=== PATIENT | female | born 1995 | race African-American/Black ===

== ENCOUNTER 2017-03-07 04:01 | Emergency (ER) | payer OTHER ==
--- NOTE | ~2017-03-07 | CR126 ---
[facility]. [facility] A Service of [facility] & [facility] RADIOLOGY TEXT RESULTS PATIENT: JACEK HUGGINS LOCATION: SED : 95 UNIT #: [id number] AGE: [address]: Jeb Franklin MD SEX: F ORDER DR: [id number] [address] [address] [id number] E MR#: [id number] #: [id number] NAME: JACEK HUGGINS : 1995 SEX: F STUDY DATE/TIME: 03/07/2017 4:31 UNIT: SED ROOM: STUDY DESCRIPTION: CR Foot Complete Min 3 View Lt Attending Physician: Jeb Franklin M.D. Ordering Physician: Jeb Franklin M.D. Primary Care Physician: No Primary Care Physician MEDICAL IMAGING REPORT This report is preliminary unless electronic signature is present. EXAM Left foot series, 03/07/2017. HISTORY 21-year-old female in the ED complaining of great toe pain and swelling after injury. Metal chair fell on foot last evening. TECHNIQUE Three-view left foot series. FINDINGS No fracture, dislocation, or other acute osseous abnormality. Soft tissue swelling involving the great toe. IMPRESSION No acute osseous abnormality. Great toe soft tissue swelling. Dictated by... Brennan Gómez M.D. THIS IS AN ELECTRONICALLY VERIFIED REPORT Brennan Gómez M.D. at 03/07/2017 9:56 PM RAYMONDW/bruce TD: 03/07/2017 12:28 JOB #: [id number] MEDICAL IMAGING REPORT Page 1 of 1
[~2017-03-07 04:01] MED LIST: KEFLEX250 M2 PO; NAPROSYN-EC500 M1 PO
[2017-03-07] MEDS ORDERED: NO MEDICATIONS (04:09)
== END 2017-03-07 05:15 | disposition home or self-care (01) ==
LOC: SED 04:01
DX: S90.112A Contusion of left great toe without damage to nail, initial encounter (principal); W22.8XXA Striking against or struck by other objects, initial encounter; Y92.830 Public park as the place of occurrence of the external cause
CPT/HCPCS: 73630; 99283

== ENCOUNTER 2017-05-24 09:43 | Emergency (ER) | payer OTHER ==
[~2017-05-24 09:43] MED LIST changes: +NO MEDICATIONS
[2017-05-24 10:13] LABS: URINE APPEARANCE CLEAR; URINE BILIRUBIN NEG (NEG); URINE BLOOD NEG (NEG); URINE COLOR YELLOW; URINE GLUCOSE NEG (NORM); URINE KETONE NEG (NEG); URINE LEUKOCYTE ESTERASE NEG (NEG); URINE NITRATE NEG (NEG); URINE PH 7.5 (5-8); URINE PROTEIN NEG (NEG); URINE SOURCE CLEAN CATCH; URINE UROBILINOGEN 0.2 MG/DL (NORM)
[2017-05-24 10:24] LABS: MICRO INDICATED? NO
[2017-05-24 10:37] LABS: BASOPHIL% 0.8 % (0-2.5); EOSINOPHIL# 0.1 X10e3 (0-0.7); EOSINOPHIL% 1.4 % (0.0-7.0); HEMOGLOBIN 12.4 gm/dL (12.0-16.0); LYMPHOCYTE# 1.5 X10e3 (1.0-3.5); LYMPHOCYTE% 27.9 % (17.0-45.0); MEAN CELL VOLUME 93.3 FL (83-96); MEAN CORPUSCULAR HEMOGLOBIN 32.1 PG (28-34); MEAN CORPUSCULAR HGB CONC 34.4 g/dL (30-36); MEAN PLATELET VOLUME 7.1 FL (6.5-11.5); MONOCYTE# 0.3 X10e3 (0-1.0); MONOCYTE% 6.5 % (3.0-12.0); NEUTROPHIL# 3.4 X10e3 (1.5-7.1); NEUTROPHIL% 63.4 % (40-75); PLATELET COUNT 284 X10e3 (140-420); RED BLOOD COUNT 3.85 X10e (3.90-5.30); WHITE BLOOD COUNT 5.3 X10e3 (4.0-10.5)
[2017-05-24 10:38] LABS: DIFF IND NO
[2017-05-24 11:01] LABS: ALBUMIN SERUM 4.3 g/dL (3.5-5.0); ALKALINE PHOSPHATASE 46 U/L (32-92); ALT (SGPT) 15 U/L (10-40); AST (SGOT) 18 U/L (10-42); BILIRUBIN,TOTAL 0.6 mg/dL (0.2-2.0); BLOOD UREA NITROGEN 7 mg/dL (9-23); BUN/CREATININE RATIO 11.66; CARBON DIOXIDE 23 mmol/L (22-31); CHLORIDE 103 mmol/L (100-111); CREATININE SERUM 0.6 mg/dL (0.6-1.4); GLUCOSE FASTING 88 mg/dL (70-110); LIPASE 22 U/L (22-51); POTASSIUM 3.3 mmol/L (3.5-5.1); PROTEIN TOTAL SERUM 7.2 g/dL (6.0-8.3); SODIUM 134 mmol/L (135-145)
[2017-05-24 11:04] LABS: BILIRUBIN, DIRECT <0.1 mg/dL (0.0-0.2); BILIRUBIN,INDIRECT 0.5 mg/dL (0.0-0.9)
== END 2017-05-24 14:22 | disposition home or self-care (01) ==
LOC: SED 09:43
PROVIDERS: Emergency Medicine
DX: O21.0 Mild hyperemesis gravidarum (principal); Z3A.01 Less than 8 weeks gestation of pregnancy
CPT/HCPCS: 36415; 80048; 80076; 81003; 83690; 85025; 96360; 99284